=== PATIENT | female | born 1985 | race Native Hawaiian/Other Pacific Islander ===

== ENCOUNTER 2018-08-08 08:27 | Outpatient (CLI) | payer OTHER | END 2018-08-08 22:34 | disposition home or self-care (01) | LOC: MAMMO 08:27 | DX: Z12.31 Encounter for screening mammogram for malignant neoplasm of breast (principal) ==

== ENCOUNTER 2018-08-14 08:48 | Outpatient (CLI) | payer OTHER | END 2018-08-14 19:48 | disposition home or self-care (01) | LOC: US 08:48 | DX: R92.2 Inconclusive mammogram (principal) ==